=== PATIENT | male | born 1995 | race Hispanic/Latino ===

== ENCOUNTER 2018-12-18 15:13 | Emergency (ER) | payer BC ==
[2018-12-18 15:37] VITALS: RESP 16; O2SAT 99
[2018-12-18] MEDS ORDERED: Sodium Chloride 0.9% 1,000 ML IV STA (16:52)
--- NOTE | 2018-12-18 16:52 | ED PDOC ---
HPI: Abdomen Time Seen by Provider: 12/18/18 15:56 Chief Complaint (Nursing): GI Problem Chief Complaint (Provider): GI Problem History Per: Patient History/Exam Limitations: no limitations Onset/Duration Of Symptoms: Days (x2) Severity: Severe Associated Symptoms: Nausea, Diarrhea Additional Complaint(s): 23 years old male presents to ER for evaluation of severe diarrhea onset 2 days ago. Patient reports he started a Medrol dose pack yesterday and began having diarrhea around 1 pm. He states he has been having it frequently since then and reports today he began having weakness, dizziness, nausea with some abdominal pain. Patient reports taking Medrol for back pain secondary to L5 discectomy. He recently returned from [facility] 1 week ago. PMD: None provided Past Medical History Reviewed: Historical Data, Nursing Documentation, Vital Signs Vital Signs: Last Vital Signs Temp 98.5 F 12/18/18 15:35 Pulse 100 H 12/18/18 15:35 Resp 16 12/18/18 15:35 BP 120/75 12/18/18 15:35 Pulse Ox 99 12/18/18 15:35 Primary Care Provider: Procedure,Nonphys - Medical History PMH: No Chronic Diseases - Surgical History Surgical History: Back Surgery (HERNIATED DISC) - Family History Family History: States: Unknown Family Hx - Allergies Allergies/Adverse Reactions: Allergies Allergy/AdvReac Type Severity Reaction Status Date / Time Penicillins Allergy URTICARIA Verified 12/18/18 15:35 Review of Systems ROS Statement: Except As Marked, All Systems Reviewed And Found Negative Gastrointestinal: Positive for: Nausea, Abdominal Pain, Diarrhea Neurological: Positive for: Weakness, Dizziness Physical Exam - Reviewed Nursing Documentation Reviewed: Yes Vital Signs Reviewed: Yes - Physical Exam Appears: Positive for: No Acute Distress (Tired appearing) Head Exam: Positive for: ATRAUMATIC, NORMOCEPHALIC Skin: Negative for: Normal Color (Diffusely sunburn with mild pealing of shoulders) Cardiovascular/Chest: Positive for: Regular Rate, Rhythm. Negative for: Murmur Respiratory: Positive for: Normal Breath Sounds. Negative for: Wheezing Gastrointestinal/Abdominal: Positive for: Soft, Tenderness (mild diffused). Negative for: Other Back: Positive for: Normal Inspection, Other (Spinal cord or flank tenderness). Negative for: L CVA Tenderness, R CVA Tenderness Extremity: Positive for: Normal ROM. Negative for: Pedal Edema, Swelling Neurological/Psych: Positive for: Awake, Alert, Oriented (x3) - Laboratory Results Result Diagrams: 12/18/18 16:45 12/18/18 16:45 - ECG O2 Sat by Pulse Oximetry: 99 (RA) Pulse Ox Interpretation: Normal Medical Decision Making Medical Decision Making: Time: 1630 MDM: Patient states he syncopizes every time he has blood drawn --Workup for diarrhea with weakness including fecal blood and stool culture --IV fluid --Reassess patient 1854 No signs of anemia. Talked to Dr Beckham who will follow up with patient as outpatient and recommends CT at this point. Plan was discussed with patient who is feeling improved after IV fluids however continues to have diarrhea. 2008 FINDINGS: LUNG BASES: The lung bases appear clear. No pleural effusions are seen. LIVER: Unremarkable. GALLBLADDER AND BILE DUCTS: The gallbladder appears within normal limits. No radioopaque gallstones are seen. No biliary ductal dilatation is evident. PANCREAS: Unremarkable. SPLEEN: Unremarkable. ADRENAL GLANDS: Unremarkable. KIDNEYS, URETERS, AND BLADDER: The kidneys appear within normal limits. There is no hydronephrosis or hydroureter. No urinary calculi are seen. STOMACH AND BOWEL: Thick walled fluid filled duodenum and loops of jejunum as well as ileum compatible with enteritis. Thick walled fluid filled colon is noted with involvement of all segments compatible with diffuse pancolitis. APPENDIX: No evidence of acute appendicitis on CT examination. PERITONEUM: No free fluid. No free air. LYMPH NODES: No lymphadenopathy is evident. REPRODUCTIVE: Unremarkable as visualized. VASCULATURE: No evidence of abdominal aortic aneurysm. BONES: No aggressive appearing osseous lesion. No acute osseous pathology evident. MISCELLANEOUS: Infectious and inflammatory etiologies are considered. IMPRESSION: Severe diffuse enterocolitis. Infectious and inflammatory etiologies are considered. GI consult is recommended. 2015 Patient will follow up with Dr Beckham on and return parameters were discussed. Patient is in stable condition and ready to be discharged. Scribe Attestation: Documented by Karol Singh acting as a scribe for Susan Lund MD. Provider Scribe Attestation: All medical record entries made by the Scribe were at my direction and personally dictated by me. I have reviewed the chart and agree that the record accurately reflects my personal performance of the history, physical exam, medical decision making, and the department course for this patient. I have also personally directed, reviewed, and agree with the discharge instructions and disposition. Disposition - Clinical Impression Clinical Impression: Gastroenteritis - Disposition Referrals: Satnam Beckham MD, PhD [Staff Provider] - Disposition: Routine/Home Disposition Time: 20:16 Condition: IMPROVED Additional Instructions: Increase water intake while symptoms last. Call Dr. Beckham tomorrow to schedule an appointment for . Return to the emergency department if symptoms worsen. Instructions: Diarrhea in Adolescents and Adults, Gastroenteritis (ED) Forms: [employer] (Divehi) Print Language: SINHALA
[2018-12-18 17:13] LABS: BASO % 0.1 % (0.0-2.0); EOS % 0.7 % (0.0-4.0); HEMOGLOBIN 16.2 g/dL (12.0-18.0); LYMPH # 0.9 K/uL (1.0-4.3); LYMPH % 15.5 % (20.0-40.0); MEAN CELL VOLUME 93.3 fl (80.0-94.0); MEAN CORPUSCULAR HEMOGLOBIN 31.6 pg (27.0-31.0); MEAN CORPUSCULAR HGB CONC 33.8 g/dL (33.0-37.0); MEAN PLATELET VOLUME 8.7 fl (7.2-11.7); MONO # 0.8 K/uL (0.0-0.8); NEUT # 4.1 K/uL (1.8-7.0); NEUT % 70.7 % (50.0-75.0); RBC 5.12 Mil/uL (4.40-5.90); RED CELL DISTRIBUTION WIDTH 12.2 % (11.5-14.5); WHITE BLOOD COUNT 5.8 K/uL (4.8-10.8)
[2018-12-18 17:25] LABS: ALB/GLOB RATIO 1.5 (1.0-2.1); ALBUMIN 4.8 g/dL (3.5-5.0); ALT/SGPT 52 U/L (21-72); AST/SGOT 40 U/L (17-59); BLOOD UREA NITROGEN 22 mg/dl (9-20); CALCIUM 9.5 mg/dL (8.4-10.2); GFR NON-AFRICAN AMERICAN > 60
[2018-12-18 17:33] LABS: PROTHROMBIN TIME 11.9 Seconds (9.8-13.1)
[2018-12-18 17:35] LABS: PARTIAL THROMBOPLASTIN TIME 31.7 Seconds (25.6-37.1)
[2018-12-18 18:55] LABS: URINE BILIRUBIN NEGATIVE (NEGATIVE); URINE BLOOD NEGATIVE (NEGATIVE); URINE CLARITY SLIGHTY-CLOUDY (Clear); URINE COLOR YELLOW (YELLOW); URINE GLUCOSE (UA) NEG (NEGATIVE); URINE LEUKOCYTE ESTERASE NEG Leu/uL (Negative); URINE PROTEIN 30 mg/dL (NEGATIVE); URINE UROBILINOGEN 0.2-1.0 mg/dL (0.2-1.0)
[2018-12-18] MEDS ORDERED: Iohexol 300 100 ML IJ ONE (18:55)
[2018-12-18] MEDS ORDERED: Sodium Chloride 0.9% 50 ML IV ONE (18:55)
[2018-12-18 22:06] VITALS: BP 122/79; PULSE 88; TEMP 98.1
--- NOTE | 2018-12-19 10:21 | CT ---
Date of service: 12/18/2018 PROCEDURE: CT Abdomen and Pelvis with contrast HISTORY: Abdominal pain and FOBT pos COMPARISON: None available. TECHNIQUE: CT scan of the abdomen and pelvis was performed after administration of intravenous contrast. Oral contrast was not administered. Coronal and sagittal reformatted images were obtained. Contrast dose: 95 mL Omnipaque 300 the the Radiation dose: Total exam DLP = 283.25 mGy-cm. This CT exam was performed using one or more of the following dose reduction techniques: Automated exposure control, adjustment of the mA and/or kV according to patient size, and/or use of iterative reconstruction technique. FINDINGS: LOWER THORAX: The visualized lungs are clear. LIVER: Mild hepatomegaly and fatty liver. Normal homogeneous enhancement. No gross lesion or ductal dilatation. GALLBLADDER AND BILE DUCTS: Well distended. No calcified gallstones, wall thickening or pericholecystic fluid. PANCREAS: Normal in size with homogeneous enhancement. No gross lesion or ductal dilatation. SPLEEN: Mild splenomegaly. Normal homogeneous enhancement. ADRENALS: No discrete nodule. KIDNEYS AND URETERS: Normal in size with homogeneous enhancement. No hydronephrosis. No solid mass. VASCULATURE: No aortic aneurysm. There are no aortic atherosclerotic calcifications or mural plaque present. BOWEL: Evaluation of the bowel is limited in the absence of oral contrast. There are fluid-filled mildly dilated small bowel loops and colon with mural enhancement and multiple air-fluid levels without evidence for bowel obstruction. APPENDIX: Not distinctly identified however no inflammatory changes in the right lower quadrant. PERITONEUM: No free fluid. No free air. LYMPH NODES: There are multiple enlarged mesenteric lymph nodes, likely reactive. BLADDER: Well distended and normal in appearance. REPRODUCTIVE: The uterus is normal in size. BONES: No acute fracture. Within normal limits for the patient's age. OTHER FINDINGS: None. IMPRESSION: Findings are most compatible with acute nonspecific infectious/inflammatory enterocolitis. No evidence for bowel obstruction. Mild hepatosplenomegaly and fatty liver. A preliminary report was provided by [employer].
== END 2018-12-18 21:05 | disposition home or self-care (01) ==
LOC: H.ER 15:13
DX: K52.9 Noninfective gastroenteritis and colitis, unspecified (principal); Z88.0 Allergy status to penicillin
CPT/HCPCS: 74177; 80053; 81003; 85025; 85610; 85730; 87045; 96360; 99284; G0328; J7030; Q9967